=== PATIENT | male | born 1990 | race African-American/Black ===

== ENCOUNTER 2018-01-28 14:37 | Emergency (ER) | payer OTHER ==
--- NOTE | 2018-01-28 14:48 | PDOC ---
Rapid Medical Evaluation Time Seen by Provider: 01/28/18 14:45 Medical Evaluation: 01/28/18 14:45 Pt presents to the ED with R knee pain for two months. Pt reports he injured his knee while landing during skydiving two months ago. He states he exacerbated the injury lifting furniture today. He states that the pain comes and goes. Denies fevers, chills, numbness and weakness to the extremity Exam: Full ROM of R knee. ambulatory. PMS of the R leg intact Orders: Knee x-ray Pt to proceed to the ED for further evaluation Discharge Disposition - Diagnosis Right knee pain - Referrals - Patient Instructions - Post Discharge Activity
[2018-01-28 14:50] VITALS: BP 142/87; PULSE 94; TEMP 99.2; BMI 25.0
--- NOTE | 2018-01-28 15:02 | PDOC ---
History of Present Illness - General Chief Complaint: Pain, Acute Stated Complaint: KNEE PAIN Time Seen by Provider: 01/28/18 14:45 History Source: Patient Exam Limitations: No Limitations - History of Present Illness Initial Comments: CHIEF COMPLAINT: 27 y/o afebrile male with no significant PMH c/o right knee pain "for a while". 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 He initially hurt his right knee a few years ago when landing after skydiving. He states he attempted to lift something heavy yesterday and his right knee got swollen. He denies all other symptoms. He hasn't taken anything for pain. Vital signs on arrival are within normal limits. REVIEW OF SYSTEMS: GENERAL/CONSTITUTIONAL: No fever/chills. No weakness. No weight change. GENITOURINARY: No dysuria, frequency, or change in urination. MUSCULOSKELETAL: +right knee pain and swelling. No neck or back pain. SKIN: No rash or easy bruising. NEUROLOGIC: No headache, vertigo, loss of consciousness, or loss of sensation. PHYSICAL EXAM: GENERAL: The patient is awake, alert, and fully oriented, in no acute distress. He is well appearing and ambulatory with normal gait. HEAD: Normal with no signs of trauma. EXTREMITIES: Normal range of motion, no edema. No erythema, warmth or joint line tenderness to right knee. full flexion and extension of right knee. Negative lachmann's test of right knee. NEUROLOGICAL: Normal speech, normal gait. CN II-XII grossly intact. Past History - Past Medical History Allergies/Adverse Reactions: Allergies Allergy/AdvReac Type Severity Reaction Status Date / Time No Known Allergies Allergy Verified 01/28/18 14:46 Home Medications: Ambulatory Orders NK [No Known Home Medication] 01/28/18 COPD: No - Suicide/Smoking/Psychosocial Hx Smoking History: Never smoked Hx Alcohol Use: No Drug/Substance Use Hx: No *Physical Exam - Vital Signs Last Vital Signs Temp Pulse Resp BP Pulse Ox 99.2 F 94 H 18 142/87 99 01/28/18 14:46 01/28/18 14:46 01/28/18 14:46 01/28/18 14:46 01/28/18 14:46 Medical Decision Making - Medical Decision Making A/P: 27 y/o male who most likely had soft tissue injury of right knee. Acute on chronic exacerbation. Xray negative. Will give PO motrin Suggested RICE instructions and Ortho f/u. The patient verbalizes understanding of all instructions, has no further questions and is awaiting discharge. *DC/Admit/Observation/Transfer Diagnosis at time of Disposition: Right knee pain Qualifiers: Chronicity: acute Qualified Code(s): M25.561 - Pain in right knee - Discharge Dispostion Disposition: HOME Condition at time of disposition: Good - Referrals Referrals: Josiah Felder MD [Staff Physician] - - Patient Instructions Printed Discharge Instructions: How To Perform RICE (Rest, Ice, Compress, Elevate), DI for Knee Pain Additional Instructions: Discharge Instructions: -The xray of your knee was normal -Please take over the counter Motrin if needed for food for pain/swelling -Follow RICE instructions -Follow up with Dr. Felder within 2 weeks if symptoms persist. - Post Discharge Activity
[2018-01-28] MEDS ORDERED: IBUPROFEN 600 MG TABLET (FP) PO ONE ×2 (15:10→15:18)
== END 2018-01-28 15:32 | disposition home or self-care (01) ==
LOC: JERFT 14:37
DX: M25.561 Pain in right knee (principal); X50.0XXA Overexertion from strenuous movement or load, initial encounter; X50.9XXA Other and unspecified overexertion or strenuous movements or postures, initial encounter; Y93.89 Activity, other specified; Y92.89 Other specified places as the place of occurrence of the external cause; Y99.8 Other external cause status
CPT/HCPCS: 73562-TC-RT-FY; 99281-25